=== PATIENT | male | born 1960 | race Hispanic/Latino ===

== ENCOUNTER → 2017-10-26 | Outpatient (CLI) | payer OTHER ==
--- NOTE | 2017-10-26 17:51 | XRay Report ---
FINAL REPORT EXAM: XR ANKLE 3+V RT HISTORY: PAIN IN RIGHT ANKLE AND JOINTS OF RIGHT FOOT TECHNIQUE: 3 views of right ankle. PRIORS: None. FINDINGS: No apparent fracture or dislocation. Ankle mortise maintained. Mild posterior and plantar calcaneal spurring. Diffuse soft tissue edema. IMPRESSION: 1. No acute osseous abnormality. 2. Soft tissue edema.
== END | disposition home or self-care (01) ==
LOC: XRAY 15:48
PROVIDERS: ATTEND Orthopaedic Surgery
DX: M25.571 Pain in right ankle and joints of right foot (principal); K21.9 Gastro-esophageal reflux disease without esophagitis; Z90.49 Acquired absence of other specified parts of digestive tract

== ENCOUNTER 2018-01-05 09:12 | Outpatient (CLI) | payer OTHER ==
--- NOTE | 2018-01-05 10:07 | XRay Report ---
RIGHT HIP, 2 views: History: Pain in right hip. Findings: The right hip prosthesis is unchanged in position and alignment since 09/22/17. No evidence for fracture, malalignment or loosening. The visualized right hemipelvis is within normal limits. Normal soft tissues. IMPRESSION: Stable appearance of the right hip prosthesis.
== END 2018-01-05 09:13 | disposition home or self-care (01) ==
LOC: XRAY 09:12
PROVIDERS: ATTEND Orthopaedic Surgery
DX: M25.551 Pain in right hip (principal); K21.9 Gastro-esophageal reflux disease without esophagitis; Z90.49 Acquired absence of other specified parts of digestive tract; Z96.641 Presence of right artificial hip joint